=== PATIENT | female | born 1985 | race Caucasian/White ===

== ENCOUNTER 2021-05-18 09:03 | Emergency (ER) | payer BC ==
[2021-05-18] MEDS ORDERED: FAMOTIDINE 20 MG TABLET PO ONE (09:40)
[2021-05-18] MEDS ORDERED: predniSONE 20 MG TABLET (UD) PO ONE (09:40)
[2021-05-18] MEDS ORDERED: diphenhydrAMINE HCL 50 MG CAPSULE PO ONE (09:40)
[2021-05-18 11:28] VITALS: BP 115/59; PULSE 98; TEMP 98.9; BMI 34.9
== END 2021-05-18 11:15 | disposition home or self-care (01) ==
LOC: FER 09:03
DX: T78.40XA Allergy, unspecified, initial encounter (principal)
CPT/HCPCS: 99283-25

== ENCOUNTER 2021-06-08 17:23 | Emergency (ER) | payer BC ==
[2021-06-08 17:57] VITALS: BMI 34.7
[2021-06-08] MEDS ORDERED: BEBTELOVIMAB (EUA) 175 MG/2 ML VIAL IVPUSH ONE (18:23)
[2021-06-08 19:18] VITALS: BP 117/76; PULSE 110; TEMP 99.3
== END 2021-06-08 20:12 | disposition home or self-care (01) ==
LOC: JER 17:23
DX: U07.1 COVID-19 (principal)
CPT/HCPCS: 99284-25; Q0222